=== PATIENT | female | born 1950 | race Caucasian/White ===

== ENCOUNTER 2016-11-23 18:08 | Inpatient (IN) | payer OTHER ==
[~2016-11-23] VITALS: Ht 167.6 cm; Wt 100.7 kg
[2016-11-23] MEDS ORDERED: ASPIRIN 81 MG TAB.CHEW PO ONE (19:00)
[2016-11-23] MEDS ORDERED: ASPIRIN 81 MG TAB.CHEW ONE (19:05)
[2016-11-23 19:16] LABS: BASOPHILS % (AUTO) 0.2 % (0.0-2.0); DIFF TOTAL % 100 %; EOSINOPHILS # (AUTO) 0.2 /CMM (0.0-0.7); EOSINOPHILS % (AUTO) 2.8 % (0.0-6.0); HEMATOCRIT 39 % (33-45); HEMOGLOBIN 12.9 g/dL (11.5-14.8); LYMPHOCYTES # (AUTO) 1.6 /CMM (0.8-4.8); LYMPHOCYTES % (AUTO) 22.1 % (20.0-44.0); MEAN CORPUSCULAR HEMOGLOBIN 28 PG (26.0-33.0); MEAN CORPUSCULAR HGB CONC 33 g/dl (31.0-36.0); MEAN CORPUSCULAR VOLUME 83 fL (82-100); MONOCYTES # (AUTO) 0.5 /CMM (0.1-1.30); MONOCYTES % (AUTO) 6.5 % (2.0-12.0); NEUTROPHILS % (AUTO) 68.4 % (43.0-81.0); PLATELET COUNT (AUTO) 228 /CMM (150-450); RED BLOOD CELL COUNT(AUTO) 4.66 MIL/uL (4.0-5.2); WHITE BLOOD COUNT (AUTO) 7.3 K/uL (4.3-11.0)
[2016-11-23 19:24] LABS: ANION GAP 13 (5-14); CALCIUM, SERUM 8.7 mg/dL (8.5-10.1); CARBON DIOXIDE 28 mmol/L (21-32); CHLORIDE 106 mmol/L (98-107); CREATININE 1.1 mg/dL (0.6-1.3); GFR 50 mL/min (>60); GLUCOSE 105 mg/dL (74-106); POTASSIUM 4.1 mmol/L (3.5-5.1); SODIUM SERUM 143 mmol/L (136-145); UREA NITROGEN, BLOOD 18 mg/dL (7-18)
[2016-11-23 19:33] LABS: TROPONIN I < 0.017 ng/mL (0.00-0.056)
[2016-11-23 19:37] LABS: INR 1.77 (0.87-1.13); PROTHROMBIN TIME 19.2 SECS (9.5-12.7)
[2016-11-23] MEDS ORDERED: LIDOCAINE VISCOUS 2% UD 15 ML UDC ONE (20:16)
[2016-11-23] MEDS ORDERED: MAG HYDROX/AL HYDROX/SIMETH 30 ML UDC ONE (20:16)
[2016-11-23 21:15] VITALS: BP 158/79
[2016-11-23] MEDS ORDERED: LIDOCAINE VISCOUS 2% UD 15 ML UDC MM PRN (21:30)
[2016-11-23] MEDS ORDERED: MAG HYDROX/AL HYDROX/SIMETH 30 ML UDC PO PRN ×2 (21:30→22:30)
[2016-11-23] MEDS ORDERED: CARV12.52 PO (22:06)
[2016-11-23] MEDS ORDERED: ROPI1TAB2 PO (22:06)
[2016-11-23] MEDS ORDERED: ISOS30TA6 PO (22:06)
[2016-11-23] MEDS ORDERED: CARB-93 PO (22:06)
[2016-11-23] MEDS ORDERED: CHOL200026 PO (22:06)
[2016-11-23] MEDS ORDERED: NORT25CA PO (22:06)
[2016-11-23] MEDS ORDERED: WARF5TAB77 PO (22:06)
[2016-11-23] MEDS ORDERED: AMLO2.5T PO (22:06)
[2016-11-23] MEDS ORDERED: ATOR10TA PO (22:06)
[2016-11-23] MEDS ORDERED: MAGNESIUM HYDROXIDE 30 ML UDC PO PRN (22:30)
[2016-11-23] MEDS ORDERED: ENOXAPARIN SODIUM 40 MG/0.4 ML DISP.SYRIN SQ SCH (22:30)
[2016-11-23] MEDS ORDERED: ONDANSETRON HCL/PF 4 MG/2 ML VIAL IVP PRN (22:30)
[2016-11-23] MEDS ORDERED: MORPHINE SULFATE INJ 2 MG/ML DISP.SYRIN IV PRN (22:30)
[2016-11-23] MEDS ORDERED: Z GUARD REMEDY 2 OZ OINT TP PRN (22:30)
[2016-11-23] MEDS ORDERED: HYDROCODONE/APAP 5/325MG 1 EACH TABLET PO PRN (22:30)
[2016-11-23] MEDS ORDERED: ZOLPIDEM TARTRATE 5 MG TABLET PO PRN (22:30)
[2016-11-23] MEDS ORDERED: ACETAMINOPHEN 325 MG TABLET PO PRN (22:30)
[2016-11-23] MEDS ORDERED: NORTRIPTYLINE HCL 25 MG CAPSULE PO SCH (23:00)
[2016-11-23] MEDS ORDERED: ISOSORBIDE MONONITRATE (30MG) 30 MG TAB.SR.24H PO SCH (23:00)
[2016-11-23] MEDS ORDERED: WARFARIN SODIUM 5 MG TABLET PO SCH (23:00)
[2016-11-23] MEDS ORDERED: WARFARIN SODIUM 5 MG TABLET ONE (23:02)
[2016-11-23] MEDS ORDERED: NORTRIPTYLINE HCL 25 MG CAPSULE ONE (23:02)
[2016-11-23] MEDS ORDERED: CARVEDILOL 12.5 MG TABLET ONE (23:03)
[2016-11-23] MEDS ORDERED: CARBIDOPA/LEVODOPA 25/100 MG 1 UDTAB ONE (23:03)
[2016-11-23] MEDS ORDERED: ISOSORBIDE DINITRATE (10MG) 10 MG TABLET ONE (23:03)
[2016-11-23] MEDS: CARVEDILOL 12.5 MG TABLET PO SCH (23:08)
[2016-11-23] MEDS: CARBIDOPA/LEVODOPA 25/100 MG 1 UDTAB PO SCH (23:09)
[2016-11-23] MEDS ORDERED: ISOSORBIDE DINITRATE (10MG) 10 MG TABLET PO SCH (23:30)
[2016-11-23] MEDS ORDERED: ZOLPIDEM TARTRATE 5 MG TABLET ONE (23:58)
[2016-11-24] VITALS: BP 126/65
[2016-11-24 00:09] VITALS: BP 126/65
[2016-11-24 03:52] VITALS: BP 142/79
[2016-11-24 04:00] VITALS: BP 116/64
[2016-11-24] MEDS ORDERED: ISOSORBIDE MONONITRATE (30MG) 30 MG TAB.SR.24H PO SCH (05:00)
[2016-11-24 06:59] VITALS: BP 149/71
[2016-11-24 07:07] LABS: BASOPHILS % (AUTO) 0.6 % (0.0-2.0); DIFF TOTAL % 100 %; EOSINOPHILS # (AUTO) 0.2 /CMM (0.0-0.7); EOSINOPHILS % (AUTO) 3.2 % (0.0-6.0); HEMATOCRIT 39 % (33-45); HEMOGLOBIN 12.9 g/dL (11.5-14.8); LYMPHOCYTES % (AUTO) 32.8 % (20.0-44.0); MEAN CORPUSCULAR HEMOGLOBIN 28 PG (26.0-33.0); MEAN CORPUSCULAR HGB CONC 33 g/dl (31.0-36.0); MEAN CORPUSCULAR VOLUME 85 fL (82-100); MONOCYTES # (AUTO) 0.5 /CMM (0.1-1.30); MONOCYTES % (AUTO) 8.6 % (2.0-12.0); NEUTROPHILS # (AUTO) 3.3 /CMM (1.8-8.9); NEUTROPHILS % (AUTO) 54.8 % (43.0-81.0); PLATELET COUNT (AUTO) 212 /CMM (150-450); RED BLOOD CELL COUNT(AUTO) 4.62 MIL/uL (4.0-5.2); WHITE BLOOD COUNT (AUTO) 6.1 K/uL (4.3-11.0)
[2016-11-24 07:33] LABS: ALBUMIN 3.2 g/dL (3.4-5.0); BILIRUBIN,TOTAL 0.4 mg/dL (0.2-1.0); CALCIUM, SERUM 8.7 mg/dL (8.5-10.1); CREATININE 0.8 mg/dL (0.6-1.3); PHOSPHORUS 3.9 mg/dL (2.5-4.9); TOTAL PROTEIN, SERUM 6.8 g/dL (6.4-8.2)
[2016-11-24] MEDS: CARBIDOPA/LEVODOPA 25/100 MG 1 UDTAB PO SCH ×2 (08:54→13:00)
[2016-11-24] MEDS: CARVEDILOL 12.5 MG TABLET PO SCH (08:55)
[2016-11-24] MEDS: ISOSORBIDE DINITRATE (10MG) 10 MG TABLET PO SCH ×2 (08:57→13:00)
[2016-11-24] MEDS ORDERED: CARBIDOPA/LEVODOPA 25/100 MG 1 UDTAB PO SCH (09:00)
[2016-11-24] MEDS ORDERED: AMLODIPINE BESYLATE 2.5 MG TABLET PO SCH (09:00)
[2016-11-24] MEDS ORDERED: PANTOPRAZOLE 40 MG VIAL IV SCH (09:00)
[2016-11-24] MEDS ORDERED: CHOLECALCIFEROL 1,000 UNIT TABLET (VIT D3) PO SCH (09:00)
[2016-11-24] MEDS ORDERED: CARVEDILOL 12.5 MG TABLET PO SCH (09:00)
[2016-11-24 09:03] LABS: INR 1.76 (0.87-1.13); PROTHROMBIN TIME 19.1 SECS (9.5-12.7)
[2016-11-24 12:00] VITALS: BP 122/64
[2016-11-24] MEDS ORDERED: WARFARIN SODIUM 5 MG TABLET PO SCH ×2 (17:00→22:00)
[2016-11-24] MEDS ORDERED: ATORVASTATIN 10 MG TABLET PO SCH (22:00)
[2016-11-24] MEDS ORDERED: ropiniROLE 0.5 MG TABLET PO SCH (22:00)
[2016-11-24] MEDS ORDERED: NORTRIPTYLINE HCL 25 MG CAPSULE PO SCH (22:00)
== END 2016-11-24 13:30 | disposition home or self-care (01) | DRG 206 ==
LOC: ER 18:10 → TELE 21:11
PROVIDERS: ADMIT Family Medicine; ATTEND Family Medicine
DX: M94.0 Chondrocostal junction syndrome [Tietze] (principal); D68.59 Other primary thrombophilia; E66.9 Obesity, unspecified; E78.5 Hyperlipidemia, unspecified; F17.210 Nicotine dependence, cigarettes, uncomplicated; G20 Parkinson's disease; I10 Essential (primary) hypertension; I48.0 Paroxysmal atrial fibrillation; Z79.01 Long term (current) use of anticoagulants; Z85.3 Personal history of malignant neoplasm of breast; Z90.12 Acquired absence of left breast and nipple; Z68.35 Body mass index [BMI] 35.0-35.9, adult
CPT/HCPCS: 36415; 71010-TC; 80048-TC; 80053-TC; 80061-TC; 83735-TC; 84100-TC; 84484-TC; 85025-TC; 85610-TC; 85730-TC; 87081-TC; A4606; A6402; C9113; Z7610

== ENCOUNTER 2017-08-27 20:22 | Emergency (ER) | payer OTHER ==
[~2017-08-27] VITALS: Ht 160 cm; Wt 102.1 kg
[~2017-08-27 20:22] MED LIST: AMLO2.5T PO; ATOR10TA PO; CARB-93 PO; CARV12.52 PO; CHOL200026 PO; ISOS30TA6 PO; NORT25CA PO; ROPI1TAB2 PO; WARF5TAB77 PO
--- NOTE | 2017-08-27 20:30 | NUR ---
67 yo female bb family. patient is alert x 3, c/o headache x 1 day. patient states at home her BP machine was reading high. patient assisted to er bed via gurney. pt gowned, place don bus monitor. pt SBP is noted to be in the 180's. MD notified. awaiting orders from provider
--- NOTE | 2017-08-27 20:46 | NUR ---
Anton GIVENS at bed side for eval
--- NOTE | 2017-08-27 20:55 | NUR ---
20g right fa iv started
--- NOTE | 2017-08-27 20:59 | NUR ---
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
--- NOTE | 2017-08-27 21:01 | NUR ---
medicated pt as ordered
[2017-08-27 21:06] LABS: BASOPHILS # (AUTO) 0.1 /CMM (0.0-0.2); BASOPHILS % (AUTO) 0.7 % (0.0-2.0); EOSINOPHILS # (AUTO) 0.1 /CMM (0.0-0.7); EOSINOPHILS % (AUTO) 1.6 % (0.0-6.0); HEMATOCRIT 42 % (33-45); LYMPHOCYTES # (AUTO) 2.1 /CMM (0.8-4.8); LYMPHOCYTES % (AUTO) 24.4 % (20.0-44.0); MEAN CORPUSCULAR HEMOGLOBIN 28 PG (26.0-33.0); MEAN CORPUSCULAR HGB CONC 34 g/dl (31.0-36.0); MEAN CORPUSCULAR VOLUME 84 fL (82-100); MONOCYTES # (AUTO) 0.5 /CMM (0.1-1.30); MONOCYTES % (AUTO) 5.9 % (2.0-12.0); NEUTROPHILS # (AUTO) 5.7 /CMM (1.8-8.9); NEUTROPHILS % (AUTO) 67.4 % (43.0-81.0); PLATELET COUNT (AUTO) 239 /CMM (150-450); RDW COEFFICIENT OF VARIATION 12.3 (11.5-15.0); WHITE BLOOD COUNT (AUTO) 8.5 K/uL (4.3-11.0)
[2017-08-27 21:20] LABS: CALCIUM, SERUM 9.3 mg/dL (8.5-10.1); CARBON DIOXIDE 29 mmol/L (21-32); CHLORIDE 103 mmol/L (98-107); CREATININE 0.9 mg/dL (0.6-1.3); GLUCOSE 121 mg/dL (74-106); POTASSIUM 4.6 mmol/L (3.5-5.1); SODIUM SERUM 136 mmol/L (136-145); UREA NITROGEN, BLOOD 12 mg/dL (7-18)
[2017-08-27 21:25] LABS: ALANINE AMINOTRANSFERASE 20 U/L (12-78); ALBUMIN 3.8 g/dL (3.4-5.0); ALKALINE PHOSPHATASE 57 U/L (46-116); ASPARTATE AMINOTRANSFERASE 21 U/L (15-37); BILIRUBIN,DIRECT 0.1 mg/dL (0.0-0.2); BILIRUBIN,TOTAL 0.3 mg/dL (0.2-1.0); TOTAL PROTEIN, SERUM 7.4 g/dL (6.4-8.2)
[2017-08-27 21:27] LABS: TROPONIN I < 0.017 ng/mL (0.00-0.056)
[2017-08-27 21:45] LABS: INR 2.07 (0.87-1.13); PROTHROMBIN TIME 21.7 SECS (9.5-12.7)
[2017-08-27 22:23] VITALS: BP 168/97
--- NOTE | 2017-08-27 22:23 | NUR ---
Patient discharged to home in stable condition. Written and verbal after care instructions given. Patient verbalizes understanding of instruction.IV removed. Catheter intact and site benign. Pressure and 4x4 applied to site. No bleeding noted. pt ambulatory with a steady gait VITAL SIGNS WITHIN NORMAL LIMITS.
== END 2017-08-27 22:23 | disposition home or self-care (01) ==
LOC: ER 20:24
DX: R07.89 Other chest pain (principal); I10 Essential (primary) hypertension; E78.5 Hyperlipidemia, unspecified; F17.210 Nicotine dependence, cigarettes, uncomplicated; G20 Parkinson's disease; I48.91 Unspecified atrial fibrillation; Z79.01 Long term (current) use of anticoagulants; Z85.3 Personal history of malignant neoplasm of breast; Z90.12 Acquired absence of left breast and nipple
CPT/HCPCS: 36415; 71010; 80048; 80076; 84484; 85025; 85378; 85730; 93005; 99285; A4606; Z7610

== ENCOUNTER 2019-04-28 20:23 | Inpatient (IN) | payer MEDICAID, OTHER ==
[~2019-04-28] VITALS: Ht 162.6 cm; Wt 100.9 kg
[~2019-04-28 20:23] MED LIST changes: -AMLO2.5T PO; +AMLO2.5T4 PO
[2019-04-28] MEDS ORDERED: FLUORESCEIN SODIUM OPHTH 1 EA STRIP ONE (20:54)
[2019-04-28] MEDS ORDERED: TETRACAINE HCL/PF 0.5% UD 2 ML BOTTLE ONE (20:55)
[2019-04-28] MEDS ORDERED: TETRACAINE HCL 0.5% OPHTALMIC 15 ML BOTTLE OP ONE (21:00)
[2019-04-28] MEDS ORDERED: FLUORESCEIN SODIUM OPHTH 1 EA STRIP OP ONE (21:00)
[2019-04-28] MEDS ORDERED: CARVEDILOL 6.25 MG TABLET ONE (21:53)
[2019-04-28] MEDS ORDERED: LOSARTAN POTASSIUM 25 MG TABLET ONE (21:54)
[2019-04-28] MEDS ORDERED: ISOSORBIDE MONONITRATE (30MG) 30 MG TAB.SR.24H PO ONE ×2 (21:55→22:00)
[2019-04-28] MEDS ORDERED: ACYCLOVIR IV 1 GM in IV D5W 250 ML IV ONE (22:00)
[2019-04-28] MEDS ORDERED: methylPREDNISolone SOD SUCC 125 MG/2ML VIAL IV ONE (22:00)
[2019-04-28] MEDS ORDERED: CEFTRIAXONE 1GM BAG (ER ONLY) 1 GM/50 ML PIGGYBACK IV ONE (22:00)
[2019-04-28] MEDS ORDERED: ACETAMINOPHEN 325 MG TABLET PO ONE (22:00)
[2019-04-28] MEDS ORDERED: CARVEDILOL 6.25 MG TABLET PO ONE (22:00)
[2019-04-28] MEDS ORDERED: LOSARTAN POTASSIUM 25 MG TABLET PO ONE (22:00)
[2019-04-28] MEDS ORDERED: CARBIDOPA/LEVODOPA 25/100 MG 1 UDTAB PO STA (22:02)
[2019-04-28] MEDS ORDERED: ropiniROLE 0.5 MG TABLET PO STA (22:02)
[2019-04-28 22:04] LABS: BASOPHILS # (AUTO) 0.1 /CMM (0.0-0.2); BASOPHILS % (AUTO) 1.1 % (0.0-2.0); EOSINOPHILS % (AUTO) 1.7 % (0.0-6.0); HEMATOCRIT 43 % (33-45); HEMOGLOBIN 14.5 g/dL (11.5-14.8); LYMPHOCYTES % (AUTO) 16.8 % (20.0-44.0); MEAN CORPUSCULAR HGB CONC 34 g/dl (31.0-36.0); MEAN CORPUSCULAR VOLUME 87 fL (82-100); MONOCYTES # (AUTO) 0.5 /CMM (0.1-1.30); MONOCYTES % (AUTO) 9.2 % (2.0-12.0); NEUTROPHILS # (AUTO) 4.2 /CMM (1.8-8.9); NEUTROPHILS % (AUTO) 71.2 % (43.0-81.0); PLATELET COUNT (AUTO) 184 /CMM (150-450); WHITE BLOOD COUNT (AUTO) 5.9 K/uL (4.3-11.0)
[2019-04-28 22:13] LABS: CALCIUM, SERUM 9.1 mg/dL (8.5-10.1); CREATININE 1.3 mg/dL (0.6-1.3); POTASSIUM 4.9 mmol/L (3.5-5.1)
[2019-04-28 22:19] LABS: ALBUMIN 3.5 g/dL (3.4-5.0); BILIRUBIN,TOTAL 0.4 mg/dL (0.2-1.0); TOTAL PROTEIN, SERUM 7.6 g/dL (6.4-8.2)
[2019-04-28] MEDS ORDERED: CEFTRIAXONE 1GM BAG (ER ONLY) 50 ML IV ONE (22:22)
[2019-04-28] MEDS ORDERED: ACETAMINOPHEN 650 MG/20.3 ML UDC ONE (22:23)
[2019-04-28] MEDS ORDERED: methylPREDNISolone SOD SUCC 40 MG/ML VIAL ONE (22:23)
[2019-04-28] MEDS ORDERED: ACYCLOVIR IV 500 MG VIAL IV ONE (22:27)
[2019-04-28] MEDS ORDERED: ACETAMINOPHEN 325 MG TABLET ONE (22:27)
[2019-04-28] MEDS ORDERED: methylPREDNISolone SOD SUCC 125 MG/2ML VIAL ONE (22:27)
[2019-04-28] MEDS ORDERED: IV NS 0.9% 1,000 ML BAG IV ONE (22:30)
[2019-04-28] MEDS ORDERED: ropiniROLE 0.5 MG TABLET ONE (22:43)
[2019-04-28] MEDS ORDERED: CARBIDOPA/LEVODOPA 10/100 MG 1 UDTAB ONE (22:43)
[2019-04-28] MEDS ORDERED: IBAN150T16 PO (23:08)
[2019-04-28] MEDS ORDERED: CALC-20 PO (23:08)
[2019-04-28] MEDS ORDERED: GABA-534 PO (23:08)
[2019-04-28] MEDS ORDERED: DOCU100C36 PO (23:08)
[2019-04-28] MEDS ORDERED: LOSA50TA39 PO ×2 (23:18)
[2019-04-28] MEDS ORDERED: FURO40TA5 PO (23:18)
[2019-04-28] MEDS ORDERED: SPIR50TA5 PO (23:18)
[2019-04-28 23:30] VITALS: BP 138/75
[2019-04-29] VITALS: BP 138/75
[2019-04-29] MEDS ORDERED: HYDROCODONE/APAP 5/325MG 1 EACH TABLET PO PRN
[2019-04-29] MEDS ORDERED: ONDANSETRON HCL/PF 4 MG/2 ML VIAL IVP PRN
[2019-04-29] MEDS ORDERED: ZOLPIDEM TARTRATE 5 MG TABLET PO PRN
[2019-04-29] MEDS ORDERED: Z GUARD REMEDY 2 OZ OINT TP PRN
[2019-04-29] MEDS ORDERED: MAGNESIUM HYDROXIDE 30 ML UDC PO PRN
[2019-04-29] MEDS ORDERED: MAG HYDROX/AL HYDROX/SIMETH 30 ML UDC PO PRN
[2019-04-29] MEDS ORDERED: LOSARTAN POTASSIUM 50 MG TABLET PO PRN
[2019-04-29] MEDS: IV NS 0.9% 1,000 ML IV SCH ×2 (00:40→10:37)
[2019-04-29] MEDS ORDERED: ACETAMINOPHEN 325 MG TABLET PO PRN ×2 (04:00)
[2019-04-29] MEDS ORDERED: ISOSORBIDE MONONITRATE (30MG) 30 MG TAB.SR.24H PO SCH (05:00)
[2019-04-29] MEDS ORDERED: ACYCLOVIR IV 500 MG in IV NS 0.9% 100 ML IV SCH (05:00)
[2019-04-29] MEDS ORDERED: ACYCLOVIR IV 500 MG in IV D5W 100 ML IV SCH (05:00)
[2019-04-29 06:54] LABS: BASOPHILS % (AUTO) 0.3 % (0.0-2.0); HEMATOCRIT 40 % (33-45); HEMOGLOBIN 13.8 g/dL (11.5-14.8); LYMPHOCYTES # (AUTO) 0.5 /CMM (0.8-4.8); LYMPHOCYTES % (AUTO) 9.9 % (20.0-44.0); MEAN CORPUSCULAR HGB CONC 34 g/dl (31.0-36.0); MEAN CORPUSCULAR VOLUME 86 fL (82-100); MONOCYTES # (AUTO) 0.1 /CMM (0.1-1.30); MONOCYTES % (AUTO) 1.5 % (2.0-12.0); NEUTROPHILS # (AUTO) 4.8 /CMM (1.8-8.9); NEUTROPHILS % (AUTO) 88.3 % (43.0-81.0); PLATELET COUNT (AUTO) 166 /CMM (150-450); RED BLOOD CELL COUNT(AUTO) 4.69 MIL/uL (4.0-5.2); WHITE BLOOD COUNT (AUTO) 5.4 K/uL (4.3-11.0)
[2019-04-29 06:55] LABS: CALCIUM, SERUM 8.7 mg/dL (8.5-10.1); CREATININE 1.1 mg/dL (0.6-1.3); MAGNESIUM 1.9 mg/dL (1.8-2.4); PHOSPHORUS 2.7 mg/dL (2.5-4.9); POTASSIUM 4.6 mmol/L (3.5-5.1)
[2019-04-29 08:00] VITALS: BP 177/101
[2019-04-29] MEDS ORDERED: CHOLECALCIFEROL 1,000 UNIT TABLET (VIT D3) PO SCH (09:00)
[2019-04-29] MEDS ORDERED: AMLODIPINE BESYLATE 2.5 MG TABLET PO SCH (09:00)
[2019-04-29] MEDS ORDERED: SPIRONOLACTONE 25 MG TABLET PO SCH (09:00)
[2019-04-29] MEDS ORDERED: FUROSEMIDE 40 MG TABLET PO SCH (09:00)
[2019-04-29] MEDS ORDERED: CARVEDILOL 12.5 MG TABLET PO SCH (09:00)
[2019-04-29] MEDS ORDERED: SPIRONOLACTONE 50 MG PO SCH (09:00)
[2019-04-29] MEDS ORDERED: CALCIUM CARB 600MG /VIT D 1 EACH TABLET PO SCH (09:00)
[2019-04-29] MEDS ORDERED: SPIRONOLACTONE 50 MG TABLET PO SCH (09:00)
[2019-04-29] MEDS ORDERED: LOSARTAN POTASSIUM 50 MG TABLET PO SCH (09:00)
[2019-04-29] MEDS ORDERED: CARBIDOPA/LEVODOPA 25/100 MG 1 UDTAB PO SCH (09:00)
[2019-04-29] MEDS ORDERED: Medication Not On Formulary EA (Cholecalciferol (Vitamin D3) (Vitamin D3) 1 TAB) PO SCH (09:00)
[2019-04-29] MEDS ORDERED: DOCUSATE SODIUM 100 MG CAPSULE PO SCH (09:00)
[2019-04-29] MEDS ORDERED: ACYCLOVIR IV 1 GM in IV D5W 250 ML IV SCH (11:00)
[2019-04-29] MEDS ORDERED: hydrALAZINE HCL 25 MG TABLET PO PRN (11:30)
[2019-04-29] MEDS ORDERED: GABAPENTIN 300 MG CAPSULE PO SCH ×2 (11:30→22:00)
[2019-04-29] MEDS ORDERED: ACYC800T PO (12:03)
[2019-04-29 12:30] VITALS: BP 135/75
[2019-04-29] MEDS ORDERED: NORTRIPTYLINE HCL 25 MG CAPSULE PO SCH ×2 (22:00)
[2019-04-29] MEDS ORDERED: ATORVASTATIN 10 MG TABLET PO SCH (22:00)
[2019-04-29] MEDS ORDERED: ropiniROLE 0.5 MG TABLET PO SCH (22:00)
[2019-04-29] MEDS ORDERED: ROPINIROLE HCL PO SCH (22:00)
[2019-05-28] MEDS ORDERED: IBANDRONATE SODIUM PO SCH (09:00)
== END 2019-04-29 13:34 | disposition home or self-care (01) | DRG 82 ==
LOC: ER 20:27 → MEDSG2 22:36
PROVIDERS: ADMIT Family Medicine; ATTEND Internal Medicine
DX: B02.30 Zoster ocular disease, unspecified (principal); G20 Parkinson's disease; I48.2 Chronic atrial fibrillation; E78.5 Hyperlipidemia, unspecified; I10 Essential (primary) hypertension; F17.210 Nicotine dependence, cigarettes, uncomplicated; E66.9 Obesity, unspecified; Z68.38 Body mass index [BMI] 38.0-38.9, adult; Z90.12 Acquired absence of left breast and nipple; Z96.651 Presence of right artificial knee joint; R73.9 Hyperglycemia, unspecified; Z85.3 Personal history of malignant neoplasm of breast; Z79.01 Long term (current) use of anticoagulants
CPT/HCPCS: 36415; 80048-TC; 80053-TC; 80061-TC; 83735-TC; 84100-TC; 85025-TC; 87040-TC; 87081-TC; 97116-TC; 97530-TC; G0378; J0133; J0696; J2920; J2930; J7030; J7060

== ENCOUNTER 2023-01-05 18:58 | Emergency (ER) | payer OTHER, MEDICAID ==
[~2023-01-05] VITALS: Ht 160 cm; Wt 102.1 kg
[~2023-01-05 18:58] MED LIST changes: +ACYC-108 PO; +CALC-952 PO; +CARB-300 PO; -CARB-93 PO; +DOCU100C36 PO; +FURO40TA5 PO; +GABA-534 PO; +IBAN150T16 PO; -ISOS30TA6 PO; +ISOS30TA86 PO; +LOSA50TA39 PO; +SPIR50TA5 PO; +WARF5TAB PO; -WARF5TAB77 PO
--- NOTE | 2023-01-05 19:12 | NUR ---
[id number] RIGHT WRIST SWELLING AND PAIN 08/02. S/P SLIP/FALL FROM SITTING. -LOC, LIMITED ROM, CMS CONTACT. PATIENT IS AAOX4. ABLE TO MAKE NEEDS KNOWN. IN PAIN. PLACED COMFORTABLY IN BED. VITALS CHECKED.
[2023-01-05] MEDS ORDERED: BUPIVACAINE 0.5 % PF 150 MG/30 ML VIAL IJ ONE (19:30)
[2023-01-05] MEDS ORDERED: HYDROMORPHONE 1 MG/1 ML DISP.SYRIN IM ONE (19:30)
[2023-01-05] MEDS ORDERED: BUPIVACAINE 0.5 % PF 150 MG/30 ML VIAL ONE (19:30)
[2023-01-05] MEDS ORDERED: HYDROMORPHONE 1 MG/1 ML DISP.SYRIN ONE (19:30)
--- NOTE | 2023-01-05 19:33 | NUR ---
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
--- NOTE | 2023-01-05 20:04 | NUR ---
UPDATE GIVEN TO TEODORO
[2023-01-05] MEDS ORDERED: LIDOCAINE 2% 20 ML MDV ONE (21:53)
[2023-01-05] MEDS ORDERED: HYDR-3976 PO (22:26)
[2023-01-05] MEDS ORDERED: LIDOCAINE 2% 20 ML MDV TP ONE (23:00)
--- NOTE | 2023-01-05 23:19 | NUR ---
Patient discharged to home in stable condition. Written and verbal after care instructions given. Patient verbalizes understanding of instruction.
[2023-01-05 23:20] VITALS: BP 168/94
== END 2023-01-05 23:20 | disposition home or self-care (01) ==
LOC: ER 19:00
DX: S52.511A Displaced fracture of right radial styloid process, initial encounter for closed fracture (principal); G20 Parkinson's disease; I10 Essential (primary) hypertension; E78.5 Hyperlipidemia, unspecified; I48.91 Unspecified atrial fibrillation; F17.200 Nicotine dependence, unspecified, uncomplicated; Z85.3 Personal history of malignant neoplasm of breast; Z96.651 Presence of right artificial knee joint; Z79.899 Other long term (current) drug therapy; W18.30XA Fall on same level, unspecified, initial encounter; Y93.89 Activity, other specified; Y92.009 Unspecified place in unspecified non-institutional (private) residence as the place of occurrence of the external cause; Y99.8 Other external cause status
CPT/HCPCS: 25605; 99284; 73090; 73110; 96372; J3490 ×2; J1170